=== PATIENT | female | born 1980 ===

== ENCOUNTER 2023-07-17 18:36 | Emergency (ER) | payer OTHER, SELFPAY ==
--- NOTE | ~2023-07-17 | CT_ITS ---
EXAMINATION: CT ABDOMEN AND PELVIS WITHOUT CONTRAST CLINICAL INFORMATION: Left flank pain. COMPARISON: None available. TECHNIQUE: Multidetector volumetric imaging was performed from the superior aspect of the liver through the pubic symphysis. Sagittal and coronal reformatted images were obtained on the technologist's workstation. This CT examination was performed using dose optimization techniques as appropriate, variously including the following: *Automated exposure control *Adjustment of mA and/or kV according to patient size (this includes techniques or standardized protocols for targeted exams where dose is matched to indication/reason for exam; i.e. extremities or head) *Use of iterative reconstruction technique DLP: 600 mGy-cm FINDINGS: LUNG BASES: There is incompletely characterized bibasilar scar/subsegmental atelectasis. LIVER, GALLBLADDER, AND BILIARY TREE: The liver is normal in size, shape, and attenuation. No focal hepatic lesion or biliary ductal dilatation is present. The gallbladder is unremarkable with no evidence of radiopaque gallstones, gallbladder wall thickening, or obvious pericholecystic inflammatory changes. PANCREAS: Unremarkable. SPLEEN: Unremarkable. ADRENAL GLANDS: Unremarkable. KIDNEYS AND URETERS: The kidneys are normal in size, shape, and attenuation. At the upper pole of the right kidney medially (3:24), a 2.7 cm cyst is seen with precontrast Hounsfield value of 6.1 units. This requires no imaging follow-up. No perinephric stranding. At the lower pole of the right kidney (3:35), a 5 mm nonobstructing calculus is seen. No right ureteric calculus is seen, and there is no right obstructive uropathy. There is mild left renal upper pole focal caliectasis secondary to a central infundibular obstructing 4 mm calculus (5:50 and 4:260). No left ureteric calculus or ureterectasis is seen. There are benign, simple mid and lower pole left renal parapelvic cysts, which require no imaging follow-up. BLADDER: Unremarkable. GASTROINTESTINAL TRACT: There is mild diverticulosis, without acute diverticulitis. No bowel obstruction, free intraperitoneal air or abscess is seen. There is no focal bowel wall thickening. The vermiform appendix appears normal. ABDOMINAL WALL: There is a very small fat-containing umbilical hernia. LYMPH NODES: Normal. VASCULAR: Unremarkable. PELVIC VISCERA: The uterus and adnexa are unremarkable. A 2.7 x 1.5 cm right ovarian cyst is seen, with precontrast Hounsfield value of 4.9 units (3:62). This requires no imaging follow-up. OSSEOUS STRUCTURES: Unremarkable. CT/CT abdomen pelvis wo IV con IMPRESSION: 1. There is mild left renal upper pole focal caliectasis secondary to a 4 mm obstructing infundibular calculus. 2. A 5 mm nonobstructing right renal calculus is seen. 3. There is mild diverticulosis, without acute diverticulitis. 4. A very small fat-containing umbilical hernia is seen. 5. Osseous structures are unremarkable. 6. There are incompletely characterized bibasilar atelectatic changes. Fleischner guidelines were followed.
[2023-07-17 19:06] VITALS: BP 149/83; PULSE 78; RESP 16; TEMP 36.6; O2SAT 100; BMI 33.9
--- NOTE | 2023-07-17 19:07 | ED.GENADULT ---
HPI - General Adult General Chief complaint: Abdominal Pain Stated complaint: L side flank pain Time Seen by Provider: 07/17/23 19:37 Source: patient Mode of arrival: ambulatory Limitations: no limitations History of Present Illness HPI narrative: Patient with no history of kidney stones in the past does have strong family history of kidney stones noticed sudden onset of sharp left flank pain started 13:30 radiating to upper left abdomen as with nausea no vomiting no hematuria pain is sharp localize in flank area Related Data Previous Rx's Medication Instructions Recorded ondansetron 4 mg disintegrating 4 mg PO Q6-8H PRN nausea and 07/17/23 tablet vomiting #7 tabs oxycodone 5 mg tablet 5 mg PO Q6H PRN pain #20 tabs 07/17/23 tamsulosin 0.4 mg capsule (Flomax) 0.4 mg PO DAILY #10 caps 07/17/23 Allergies Allergy/AdvReac Type Severity Reaction Status Date / Time No Known Allergies Allergy Verified 07/17/23 19:06 Review of Systems Review of Systems: Yes all other systems are reviewed and are negative [facility] Social History Social History Alcohol intake: never Smoked in Last 30 Days: No Use of substances other than those prescribed or required for medical reasons: No Advance Directives: No Advance Directives Information Provided: No Patient : No Physical Exam ED Vital Signs: Vital Signs - 24 hr 07/17/23 19:06 Temperature 98 F Pulse Rate 78 Respiratory Rate 16 Blood Pressure 149/83 H Pulse Oximetry 100 Oxygen Delivery Method Room Air BMI result Body Mass Index 33.9 Const Other: Appearance: Alert. Oriented X3. Mild distress Eyes: PERRLA, No Nystagmus ENT: Pharynx normal. Oral Mucosa moist Neck: Normal inspection. Neck supple. CVS: Normal heart rate and rhythm. Pulses normal. Respiratory: No respiratory distress. Equal air entry bilateral, no wheezing/rales/rhonchi Abdomen: Soft and nontender. Bowel sounds are present, no mass palpable, L CVA tenderness ++ Skin: Skin warm and dry. Normal skin color. Normal skin turgor. Extremities: No lower extremity edema. No calf tenderness Neuro: Oriented X 3. Course Course Course Narrative: RME- 43 year old female presents for evaluation of left flank pain and urinary frequency. Denies any personal history of kidney stones. Denies fevers or chills. Plan for labs, UA, CT AP without contrast Medications Administered Discontinued Medications Generic Name Dose Route Start Last Admin Trade Name Valentin PRN Reason Stop Dose Admin Sodium Chloride 1,000 mls @ 999 mls/hr 07/17/23 19:51 07/17/23 20:29 Ns IV 07/17/23 20:51 999 mls/hr .Q1H1M ONE Administration Ketorolac Tromethamine 30 mg 07/17/23 19:51 07/17/23 20:29 Ketorolac Tromethamine 30 Mg/Ml Vial IVPUSH 07/17/23 19:52 30 mg ONCE ONE Administration Morphine Sulfate 4 mg 07/17/23 19:51 07/17/23 20:29 Morphine Sulfate 4 Mg/Ml Cartridge IVPUSH 07/17/23 19:52 4 mg ONCE ONE Administration Protocol Ondansetron HCl 4 mg 07/17/23 19:51 07/17/23 20:29 Ondansetron Hcl 4 Mg/2 Ml Vial IVPUSH 07/17/23 19:52 4 mg ONCE ONE Administration Medical Decision Making Medical Decision Making [facility] Narrative: Patient with left infundibular kidney stone with slight hydronephrosis felt better after IV hydration and pain medication at this time patient is pain-free in discharge patient home advised to follow-up with urologist Differential Diagnosis Differential Diagnoses: The differential diagnosis associated with the presentation includes Ureteric stone/ UTI/pyelonephritis Admission/Observation Consideration of admission/observation: Escalation of care including admission/observation considered Lab Data [facility] Lab Attestation statement: I reviewed the patient's lab results. 07/17/23 19:32 07/17/23 19:26 Labs: Lab Results 07/17/23 07/17/23 Range/Units 19:26 19:32 WBC 14.0 H (4.8-10.8) X10*3/uL RBC 4.75 (4.20-5.50) X10*6/uL Hgb 13.6 (12.0-16.0) g/dl Hct 39.5 (37.0-47.0) % MCV 83.2 (80.0-98.0) fL MCH 28.6 (27.0-33.0) pg MCHC 34.4 (31.0-35.0) g/dl RDW 12.8 (11.0-16.0) % Plt Count 328 (160-400) X10*3/uL MPV 9.4 (9.4-12.3) fL Immature Gran % (Auto) 0.4 (0.0-0.4) % Neut % (Auto) 88.6 H (45-73) % Lymph % (Auto) 6.5 L (20-40) % Gray % (Auto) 4.0 (2-11) % Eos % (Auto) 0.1 (0-4) % Baso % (Auto) 0.4 (0-2) % Lymph # (Auto) 0.9 L (1.2-4.9) X10*3/uL Gray # (Auto) 0.6 (0.1-1.2) X10*3/uL Eos # (Auto) 0.0 (0.0-0.4) X10*3/uL Baso # (Auto) 0.1 (0.0-0.2) X10*3/uL Abs Immat Gran (auto) 0.05 H (0.00-0.03) X10*3/uL Absolute Neuts (auto) 12.4 H (2.0-8.3) x10*3/uL Absolute Nucleated RBC 0.000 (0.0-0.012) X10*3/uL Nucleated RBC % (auto) 0.0 (0.0-0.2) /100WBC Sodium 137 (135-145) mmol/L Potassium 4.2 (3.3-5.1) mmol/L Chloride 108 (96-108) mmol/L Carbon Dioxide 20 L (22-29) mmol/L Anion Gap 13 (12-20) BUN 15 (9-16) mg/dL Creatinine 0.70 (0.5-1.4) mg/dL Estim Creat Clear Calc 103.0 Estimated GFR > 60 Random Glucose 103 (60-115) mg/dL Calcium 9.6 (8.4-10.2) mg/dL Beta HCG, Quant < 2 mIU/mL Urine Color Yellow Urine Appearance Cloudy Urine pH 5.5 (5.0-9.0) Ur Specific [place] 1.025 (1.005-1.025) Urine Protein Trace (Neg-Trace) mg/dL Urine Glucose (UA) Negative (Negative) mg/dL Urine Ketones Negative (Negative) mg/dL Urine Blood Large (3+) H (Negative) Urine Nitrite Negative (Negative) Ur Leukocyte Esterase Negative (Negative) Urine RBC >20 H (0-2) /HPF Urine WBC 0-5 (0-5) /HPF Ur Squamous Epith Cells 11-20 (0-2) /HPF Urine Bacteria 2+ (None Seen) Hyaline Casts 6-10 (0-2) /LPF Radiology Impression Discussion of test interpretation with radiology: I have reviewed the radiologist's reading. Radiologist Impression: CT/CT abdomen pelvis wo IV con IMPRESSION: 1. There is mild left renal upper pole focal caliectasis secondary to a 4 mm obstructing infundibular calculus. 2. A 5 mm nonobstructing right renal calculus is seen. 3. There is mild diverticulosis, without acute diverticulitis. 4. A very small fat-containing umbilical hernia is seen. 5. Osseous structures are unremarkable. 6. There are incompletely characterized bibasilar atelectatic changes. Discharge Plan Discharge Clinical Impression: Kidney stone on left side Patient Disposition: Home, Self-Care Instructions: Kidney Stones (ED), Low Oxalate Diet (ED) Additional Instructions: Drink plenty of fluids Pain medication as prescribed Flomax to keep Your kidney Tube open Follow-up with urologist Prescriptions: New oxycodone 5 mg tablet 5 mg PO Q6H PRN (Reason: pain) Qty: 20 0RF Rx Instructions: Partial Fill upon patient request. ondansetron 4 mg tablet,disintegrating 4 mg PO Q6-8H PRN (Reason: nausea and vomiting) Qty: 7 0RF tamsulosin [Flomax] 0.4 mg capsule 0.4 mg PO DAILY Qty: 10 0RF Referrals: Blair Kaminski MD [Physician] - 1 week
[2023-07-17 19:36] LABS: MANUAL DIFF FLAG NO
[2023-07-17 19:41] LABS: Basophils Absolute Auto 0.1 X10*3/uL (0.0-0.2); Basophils Percent Auto 0.4 % (0-2); Eosinophils Percent Auto 0.1 % (0-4); Hematocrit 39.5 % (37.0-47.0); Hemoglobin 13.6 g/dl (12.0-16.0); Imm Gran Abs Auto 0.05 X10*3/uL (0.00-0.03); Imm Gran Pct Auto 0.4 % (0.0-0.4); Lymphocytes Absolute Auto 0.9 X10*3/uL (1.2-4.9); Lymphocytes Percent Auto 6.5 % (20-40); Mean Corpuscular HGB Conc 34.4 g/dl (31.0-35.0); Mean Corpuscular Hemoglobin 28.6 pg (27.0-33.0); Mean Corpuscular Volume 83.2 fL (80.0-98.0); Mean Platelet Volume 9.4 fL (9.4-12.3); Monocytes Absolute Auto 0.6 X10*3/uL (0.1-1.2); Neutrophils Absolute Auto 12.4 x10*3/uL (2.0-8.3); Neutrophils Percent Auto 88.6 % (45-73); Platelet Count 328 X10*3/uL (160-400); Red Blood Count 4.75 X10*6/uL (4.20-5.50); Red Cell Distribution Width 12.8 % (11.0-16.0)
[2023-07-17 19:48] LABS: Appearance Urine Cloudy; Color Urine Yellow; Glucose Urine UA Negative (Negative); Leukocyte Esterase Urine Negative (Negative); Nitrite Urine Negative (Negative); PH 5.5 (5.0-9.0); Specific Gravity - Urine 1.025 (1.005-1.025); UMIC TRIGGER UACC YES; Urine Blood Large (3+) (Negative); Urine Ketones Negative (Negative); Urine Protein Trace mg/dL (Neg-Trace)
[2023-07-17 19:53] LABS: Anion Gap 13 (12-20); Blood Urea Nitrogen 15 mg/dL (9-16); Calcium 9.6 mg/dL (8.4-10.2); Carbon Dioxide 20 mmol/L (22-29); Chloride 108 mmol/L (96-108); Estimated Glomerular Filt Rate > 60; Glucose Random 103 mg/dL (60-115); Potassium 4.2 mmol/L (3.3-5.1); Sodium 137 mmol/L (135-145)
[2023-07-17 20:00] LABS: HCG Quantitative < 2 mIU/mL
[2023-07-17] MEDS: Morphine Sulfate 4 MG/ML CARTRIDGE IVPUSH (20:29)
[2023-07-17] MEDS: 0.9 % Sodium Chloride 1,000 ML 999 ML IV (20:29)
[2023-07-17] MEDS: ondansetron HCL 4 MG/2 ML VIAL IVPUSH (20:29)
[2023-07-17] MEDS: Ketorolac Tromethamine 30 MG/ML VIAL IVPUSH (20:29)
[2023-07-17 20:38] LABS: Bacteria Urine 2+ (None Seen); RBC Urine >20 /HPF (0-2); WBC Urine 0-5 /HPF (0-5)
[2023-07-17] MEDS: Tamsulosin HCL 0.4 MG CAPSULE PO (21:26)
== END 2023-07-17 21:34 | disposition home or self-care (01) ==
PROVIDERS: Physician Assistant; Emergency Provider Internal Medicine
DX: N20.0 Calculus of kidney (principal); R10.12 Left upper quadrant pain; R11.0 Nausea
CPT/HCPCS: 36415; 74176; 80048; 81001; 84702; 85025; 96374; 96375; 99284; J1885; J2270; J2405

== ENCOUNTER 2023-07-24 14:39 | Outpatient (AMB) | payer OTHER, SELFPAY ==
--- NOTE | 2023-07-24 14:43 | MHC.OFFVIS ---
Intake Intake Visit Reasons: Nephrolithiasis Intake Note: NEW Patient presents today to established treatment for Nephrolithiasis: Meds- Tamsulosin Allergies to Antibiotic- No Known Allergies Blood Thinner- None Pitch Filler Required: Yes Pitch Filler Language: Belarusian Information Interpreted: non-clinical & clinical Accompanied by: Self / Same As Patient Allergies No Known Allergies Allergy (Verified 07/29/23 23:55) HPI HPI Comments History of Present Illness Details Simi is a 43-year-old female who presents today to the office to establish as a new patient for an evaluation of nephrolithiasis.? 07/24/2023? She presents today for an evaluation of nephrolithiasis. The patient is a Bel[place]ian speaking female. Certified director of graduate medical education was present during the visit. She was seen in ED for left flank pain on 07/17/2023. The patient was advised to drink plenty of fluids, and was advised to follow-up with urologist during that time. I reviewed the CT of the abdomen/pelvis results from 07/17/2023 revealed 4 mm obstructing infundibular calculus. 2. A 5 mm nonobstructing right renal calculus is seen. There is mild diverticulosis, without acute diverticulitis. A very small fat-containing umbilical hernia is seen. Patient states that the left sided flank pain has worsen on 2022. Evaluation today?UA?leukocytes: negative; blood: 2 +. Plan: Bilateral kidney stones Left flank pain Discussed ESWL. [facility] Medical History (Updated 09/04/23 @ 07:51 by Delbert Benavides MD) Nephrolithiasis Surgical History (Updated 07/24/23 @ 15:03 by WESLEY Roque) Hx of tubal ligation Family History (Updated 07/24/23 @ 15:04 by WESLEY Roque) Father Cancer Mother HTN (hypertension) Sister Kidney calculi Social History (Updated 07/24/23 @ 15:03 by WESLEY Roque) Alcohol intake: never Patient Tobacco Use Status: Current everyday Tobacco user Are you DNR?: No Advance Directives: No Advance Directives Information Provided: Yes Review of Systems Const All systems reviewed & are unremarkable except as noted in HPI and below Reports no additional complaints Eyes Reports no additional complaints ENT Reports no additional complaints Card Denies dyspnea Resp Denies cough and Denies dyspnea GI Reports no additional complaints Reports no additional complaints Musc Reports no additional complaints Skin/Breast Denies rash and Denies unusual bruising Neuro Reports no additional complaints Psych Reports no additional complaints Endo Reports no additional complaints [place]/Lymph Reports no additional complaints Aller/Immun Reports no additional complaints Results AMB Urinalysis, Automated UA Leukoctes 0 Walter/uL Last Edit by Parviz West [facility] on 07/24/23 14:59 UA Nitrite Negative Last Edit by Parviz West [facility] on 07/24/23 14:59 UA Urobilinogen 0.2 mg/dL Last Edit by Parviz West [facility] on 07/24/23 14:59 UA Protein 15 mg/dL Last Edit by Parviz West [facility] on 07/24/23 14:59 UA pH 6.0 Last Edit by Parviz West [facility] on 07/24/23 14:59 UA Blood 80 Toño/uL Last Edit by Parviz West [facility] on 07/24/23 14:59 2+ Parviz West 07/24/23 14:59 UA Specific [place] 1.025 Last Edit by Parviz West [facility] on 07/24/23 14:59 UA Ketone Negative Last Edit by Parviz West [facility] on 07/24/23 14:59 UA Bilirubin 0 mg/dL Last Edit by Parviz West [facility] on 07/24/23 14:59 UA Glucose 0 mg/dL Last Edit by Parviz West [facility] on 07/24/23 14:59 Results Reviewed Results Reviewed: Laboratory Last Values Urine pH (Auto) 6.0 07/24/23 14:51 Specific [place] (Auto) 1.025 07/24/23 14:51 Urine Protein (Auto) 15 mg/dL 07/24/23 14:51 Glucose (UA)(Auto) 0 mg/dL 07/24/23 14:51 Urine Ketones (Auto) Negative 07/24/23 14:51 Urine Blood (Auto) 80 Toño/uL 07/24/23 14:51 Urine Nitrite (Auto) Negative 07/24/23 14:51 Urine Bilirubin (Auto) 0 mg/dL 07/24/23 14:51 Urine Urobilinogen (Auto) 0.2 mg/dL 07/24/23 14:51 Leukocyte Esterase (Auto) 0 Walter/uL 07/24/23 14:51 Date of Service: 07/17/23 EXAMINATION: CT ABDOMEN AND PELVIS WITHOUT CONTRAST?? CLINICAL INFORMATION: Left flank pain.?? COMPARISON: None available. FINDINGS: LUNG BASES: There is incompletely characterized bibasilar scar/subsegmental atelectasis.?? LIVER, GALLBLADDER, AND BILIARY TREE: The liver is normal in size, shape, and attenuation. No focal hepatic lesion or biliary ductal dilatation is present. The gallbladder is unremarkable with no evidence of radiopaque gallstones, gallbladder wall thickening, or obvious pericholecystic inflammatory changes.?? PANCREAS: Unremarkable.?? SPLEEN: Unremarkable.?? ADRENAL GLANDS: Unremarkable.?? KIDNEYS AND URETERS: The kidneys are normal in size, shape, and attenuation. At the upper pole of the right kidney medially (3:24), a 2.7 cm cyst is seen with precontrast Hounsfield value of 6.1 units. This requires no imaging follow-up. No perinephric stranding.? At the lower pole of the right kidney (3:35), a 5 mm nonobstructing calculus is seen. No right ureteric calculus is seen, and there is no right obstructive uropathy.? There is mild left renal upper pole focal caliectasis secondary to a central infundibular obstructing 4 mm calculus (5:50 and 4:260). No left ureteric calculus or ureterectasis is seen. There are benign, simple mid and lower pole left renal parapelvic cysts, which require no imaging follow-up. BLADDER: Unremarkable.?? GASTROINTESTINAL TRACT: There is mild diverticulosis, without acute diverticulitis. No bowel obstruction, free intraperitoneal air or abscess is seen. There is no focal bowel wall thickening. The vermiform appendix appears normal.?? ABDOMINAL WALL: There is a very small fat-containing umbilical hernia.? LYMPH NODES: Normal. VASCULAR: Unremarkable. PELVIC VISCERA: The uterus and adnexa are unremarkable. A 2.7 x 1.5 cm right ovarian cyst is seen, with precontrast Hounsfield value of 4.9 units (3:62). This requires no imaging follow-up. OSSEOUS STRUCTURES: Unremarkable.?? IMPRESSION: 1. There is mild left renal upper pole focal caliectasis secondary to a 4 mm obstructing infundibular calculus. 2. A 5 mm nonobstructing right renal calculus is seen. ?3. There is mild diverticulosis, without acute diverticulitis. 4. A very small fat-containing umbilical hernia is seen. 5. Osseous structures are unremarkable. 6. There are incompletely characterized bibasilar atelectatic changes Assessment & Plan Assessment & Plan (1) Bilateral kidney stones: Code(s): N20.0 - Calculus of kidney (2) Left flank pain: Code(s): R10.9 - Unspecified abdominal pain Plan Bilateral kidney stones Left flank pain Discussed ESWL. Orders: Orders AMB Urinalysis Automated 07/24/23 Z13.9 - Encounter for screening, unspecified Patient Instructions: The patient had an opportunity to ask questions regarding treatment plan. All questions were answered. Imaging, Laboratory studies and physical exam results were discussed and reviewed in detail. No major barriers to understanding were identified. The patient expressed understanding and agreement with the above treatment plan.? ? ? The patient is aware they should contact our office by phone for worsening of their current condition or the appearance of new symptoms. Compliance is encouraged with any medications and followup testing that is ordered.? ? ? It is a privilege to be allowed the opportunity to participate in the urologic care of your patient. If you have any questions or concerns regarding treatment for the above conditions please do not hesitate to contact me. The office telephone contact is [phone].? ? ? This note is constructed in part using voice recognition software. While every effort has been made to ensure accuracy customer service representative teller errors may have been included.? ? ? Yours sincerely,? ? ? Delbert Benavides MD? ? Coding Level of Care Code Est Pt Level 4 (38311) Diagnoses Bilateral kidney stones N20.0 Left flank pain R10.9
== END 2023-07-24 15:23 | disposition home or self-care (01) ==
PROVIDERS: Visit Provider Urology
DX: N20.0 Calculus of kidney (principal); R10.9 Unspecified abdominal pain
CPT/HCPCS: 99214

== ENCOUNTER → 2023-07-24 14:39 | Outpatient (BNVA) | payer OTHER, SELFPAY | PROVIDERS: Visit Provider Urology | DX: N20.0 Calculus of kidney (principal); R10.9 Unspecified abdominal pain | CPT/HCPCS: 81003; 99212 ==

== ENCOUNTER 2023-07-29 23:41 | Emergency (ER) | payer OTHER, SELFPAY ==
[2023-07-29 23:51] VITALS: BP 147/81; PULSE 86; RESP 18; TEMP 37.1; O2SAT 100; BMI 33.3
[2023-07-30 00:19] LABS: MANUAL DIFF FLAG NO
[2023-07-30 00:20] LABS: Basophils Absolute Auto 0.1 X10*3/uL (0.0-0.2); Basophils Percent Auto 0.4 % (0-2); Eosinophils Absolute Auto 0.1 X10*3/uL (0.0-0.4); Eosinophils Percent Auto 0.4 % (0-4); Hematocrit 37.7 % (37.0-47.0); Hemoglobin 12.8 g/dl (12.0-16.0); Imm Gran Abs Auto 0.06 X10*3/uL (0.00-0.03); Imm Gran Pct Auto 0.4 % (0.0-0.4); Lymphocytes Absolute Auto 1.1 X10*3/uL (1.2-4.9); Lymphocytes Percent Auto 7.2 % (20-40); Mean Corpuscular Hemoglobin 28.7 pg (27.0-33.0); Mean Corpuscular Volume 84.5 fL (80.0-98.0); Mean Platelet Volume 9.3 fL (9.4-12.3); Monocytes Percent Auto 6.3 % (2-11); Neutrophils Absolute Auto 13.3 x10*3/uL (2.0-8.3); Neutrophils Percent Auto 85.3 % (45-73); Platelet Count 308 X10*3/uL (160-400); Red Blood Count 4.46 X10*6/uL (4.20-5.50); Red Cell Distribution Width 12.7 % (11.0-16.0); White Blood Count 15.6 X10*3/uL (4.8-10.8)
[2023-07-30 00:24] LABS: Appearance Urine Cloudy; Color Urine Yellow; Glucose Urine UA Negative (Negative); Leukocyte Esterase Urine Trace (Negative); Nitrite Urine Negative (Negative); Specific Gravity - Urine 1.025 (1.005-1.025); UMIC TRIGGER UACC YES; Urine Blood Small (1+) (Negative); Urine Ketones Negative (Negative); Urine Protein Negative (Neg-Trace)
[2023-07-30 00:30] LABS: Bacteria Urine 4+ (None Seen); Hyaline Casts Urine 0-2 /LPF (0-2); WBC Urine 0-5 /HPF (0-5)
[2023-07-30 00:36] LABS: Alanine Aminotransferase 17 U/L (0-31); Albumin Level 4.1 g/dL (3.5-5.0); Alkaline Phosphatase 99 U/L (39-117); Anion Gap 15 (12-20); Aspartate Amino Transferase 17 U/L (5-31); Bilirubin Direct < 0.2 mg/dL (0.0-0.5); Bilirubin Total 0.2 mg/dL (0.0-1.0); Blood Urea Nitrogen 20 mg/dL (9-16); Calcium 9.4 mg/dL (8.4-10.2); Carbon Dioxide 20 mmol/L (22-29); Chloride 109 mmol/L (96-108); Creatinine Clr Calc Pharmacy 62.1; Estimated Glomerular Filt Rate 51; Glucose Random 138 mg/dL (60-115); Lipase 48 U/L (8-78); Potassium 4.4 mmol/L (3.3-5.1); Sodium 140 mmol/L (135-145); Total Protein 7.5 g/dL (6.5-8.0)
[2023-07-30] MEDS: Ketorolac Tromethamine 30 MG/ML VIAL IVPUSH (01:04)
[2023-07-30] MEDS: ondansetron HCL 4 MG/2 ML VIAL IVPUSH (01:04)
[2023-07-30] MEDS: 0.9 % Sodium Chloride 1,000 ML 999 ML IV (01:04)
--- NOTE | 2023-07-30 01:23 | ED.GENADULT ---
HPI - General Adult General Chief complaint: General Medical Stated complaint: Kidney stones Time Seen by Provider: 07/30/23 00:44 Source: patient, RN notes reviewed and old records reviewed Mode of arrival: ambulatory Limitations: no limitations History of Present Illness HPI narrative: 43-year-old female presents for evaluation of left flank pain. Patient was seen here on 07/17/2023 and diagnosed with a 4 mm left kidney stone. She was ultimately discharged home to follow-up with Dr. Benavides. Discharge home with tamsulosin, oxycodone, Zofran. The patient reports that her pain resolved within a couple of days She saw Urology 1 week later on 07/24/2023 he was given follow-up for September. The patient's pain returned today around 9:00 p.m., 3-1/2 hours prior to arrival to the ED She states the pain is waxing and waning. Denies any fevers, chills. She reports ?I keep feeling like I have to pee but then only a little comes out. ? Related Data Home Medications Medication Instructions Recorded Confirmed naproxen 500 mg tablet 500 mg PO BID 07/24/23 Previous Rx's Medication Instructions Recorded ondansetron 4 mg disintegrating 4 mg PO Q6-8H PRN nausea and 07/17/23 tablet vomiting #7 tabs oxycodone 5 mg tablet 5 mg PO Q6H PRN pain #20 tabs 07/17/23 tamsulosin 0.4 mg capsule (Flomax) 0.4 mg PO DAILY #10 caps 07/17/23 cefuroxime axetil 250 mg tablet 250 mg PO BID #14 tabs 07/30/23 oxycodone 5 mg tablet 5 mg PO Q6H PRN severe pain (scale 07/30/23 score 7-10) #12 tabs tamsulosin 0.4 mg capsule 0.4 mg PO DAILY #7 caps 07/30/23 Allergies Allergy/AdvReac Type Severity Reaction Status Date / Time No Known Allergies Allergy Verified 07/29/23 23:55 Review of Systems Constitutional: Constitutional: Denies chills and Denies fever(s) Eyes: Eyes: Denies blurry vision ENT: Denies vertigo Cardiovascular: Cardiovascular: Denies chest pain and Denies dyspnea Respiratory: Respiratory: Denies cough and Denies dyspnea Gastrointestinal: Gastrointestinal: Reports abdominal pain, Denies nausea and Denies vomiting Genitourinary: Genitourinary: Denies dysuria and Reports flank pain Musculoskeletal: Musculoskeletal: Reports back pain Integumentary/Breasts: Skin/Breast: Denies rash Neurologic: Denies vertigo [facility] Past Medical History Surgical History (Updated 07/24/23 @ 15:03 by WESLEY Roque) Hx of tubal ligation Family History Family History (Updated 07/24/23 @ 15:04 by WESLEY Roque) Father Cancer Mother HTN (hypertension) Sister Kidney calculi Social History Social History (Updated 07/24/23 @ 15:03 by WESLEY Roque) Alcohol intake: never Patient Tobacco Use Status: Former Tobacco user Smoked in Last 30 Days: Yes Use of substances other than those prescribed or required for medical reasons: No Advance Directives: No Advance Directives Information Provided: No Patient : No Physical Exam ED Vital Signs: Vital Signs - 24 hr 07/29/23 23:51 Temperature 98.7 F Pulse Rate 86 Respiratory Rate 18 Blood Pressure 147/81 H Pulse Oximetry 100 Oxygen Delivery Method Room Air BMI result Body Mass Index 33.3 Const General: healthy appearing, comfortable, no acute distress, alert and awake Nutritional Appearance: well nourished Orientation/consciousness: patient oriented x3 HENMT Head: Yes normocephalic and Yes atraumatic Eyes Eyelids: Yes eyelids normal Conjunctivae: conjunctivae normal Sclerae: sclerae normal Corneas: corneas normal Pupils: Equal, round and reactive pupils present EOM: EOMs intact bilaterally Neck Neck: Yes full ROM Resp Effort & Inspection: normal respiratory effort, able to speak in complete sentences and not labored Cardio Rate: regular rate Rhythm: regular rhythm GI Inspection: No distended Palpation (GI): Soft to palpation, not firm, nontender, no guarding and not rigid Skin General skin exam: elasticity normal Neuro General: patient oriented x3 Cranial nerves: Yes Equal, round and reactive pupils present and Yes Bilaterally intact EOM present Cognition (Neuro): normal cognition Extrem Other: Moving all extremities well without any obvious deformities Medications Administered Generic Name Dose Route Start Last Admin Trade Name Freq PRN Reason Stop Dose Admin Sodium Chloride 1,000 mls @ 999 mls/hr 07/30/23 01:00 07/30/23 01:04 Ns IV 09/26/23 02:00 999 mls/hr .Q1H1M APPLE Administration Discontinued Medications Generic Name Dose Route Start Last Admin Trade Name Valentin PRN Reason Stop Dose Admin Ketorolac Tromethamine 30 mg 07/30/23 00:51 07/30/23 01:04 Ketorolac Tromethamine 30 Mg/Ml Vial IVPUSH 07/30/23 00:52 30 mg ONCE ONE Administration Ondansetron HCl 4 mg 07/30/23 00:51 07/30/23 01:04 Ondansetron Hcl 4 Mg/2 Ml Vial IVPUSH 07/30/23 00:52 4 mg ONCE ONE Administration Medical Decision Making Medical Decision Making MDM Narrative: 43-year-old male presents for evaluation left flank pain. She was seen here just about 2 weeks ago for similar and diagnosed with a 4 mm left infundibular stone. She was pain free for about a week before her pain returned again today. She is noted have a leukocytosis of 15.6 K. This may be partially related to the amount of pain she is experiencing earlier/reactive. Her renal function is slightly increased compared to her last visit with a BUN of 20 and a creatinine of 1.15. No evidence of significant renal injury, however showed likely still has some degree of obstruction. The patient also has 4+ bacteria in the urine, therefore we will treat with cefuroxime axetil. She has no evidence of sepsis, no fevers. Vital signs are stable Differential Diagnosis Differential Diagnoses: The differential diagnosis associated with the presentation includes Obstructive uropathy Pyelonephritis Cystitis UTI Flank pain Muscle strain Admission/Observation Consideration of admission/observation: Escalation of care including admission/observation considered Patient's 2nd visit for obstructive uropathy, however she is not septic with vital signs, she appears quite comfortable, her renal function is only minimally increased. No indication for admission at this time Lab Data MDM Lab Attestation statement: I reviewed the patient's lab results. Mild leukocytosis, mild BUN creatinine increased compared to baseline as described above. No significant electrolyte abnormalities. 07/30/23 00:15 07/30/23 00:15 Labs: Lab Results 07/30/23 07/30/23 Range/Units 00:15 00:19 WBC 15.6 H (4.8-10.8) X10*3/uL RBC 4.46 (4.20-5.50) X10*6/uL Hgb 12.8 (12.0-16.0) g/dl Hct 37.7 (37.0-47.0) % MCV 84.5 (80.0-98.0) fL MCH 28.7 (27.0-33.0) pg MCHC 34.0 (31.0-35.0) g/dl RDW 12.7 (11.0-16.0) % Plt Count 308 (160-400) X10*3/uL MPV 9.3 L (9.4-12.3) fL Immature Gran % (Auto) 0.4 (0.0-0.4) % Neut % (Auto) 85.3 H (45-73) % Lymph % (Auto) 7.2 L (20-40) % [place] % (Auto) 6.3 (2-11) % Eos % (Auto) 0.4 (0-4) % Baso % (Auto) 0.4 (0-2) % Lymph # (Auto) 1.1 L (1.2-4.9) X10*3/uL [place] # (Auto) 1.0 (0.1-1.2) X10*3/uL Eos # (Auto) 0.1 (0.0-0.4) X10*3/uL Baso # (Auto) 0.1 (0.0-0.2) X10*3/uL Abs Immat Gran (auto) 0.06 H (0.00-0.03) X10*3/uL Absolute Neuts (auto) 13.3 H (2.0-8.3) x10*3/uL Absolute Nucleated RBC 0.000 (0.0-0.012) X10*3/uL Nucleated RBC % (auto) 0.0 (0.0-0.2) /100WBC Sodium 140 (135-145) mmol/L Potassium 4.4 (3.3-5.1) mmol/L Chloride 109 H (96-108) mmol/L Carbon Dioxide 20 L (22-29) mmol/L Anion Gap 15 (12-20) BUN 20 H (9-16) mg/dL Creatinine 1.15 (0.5-1.4) mg/dL Estim Creat Clear Calc 62.1 Estimated GFR 51 Random Glucose 138 H (60-115) mg/dL Calcium 9.4 (8.4-10.2) mg/dL Total Bilirubin 0.2 (0.0-1.0) mg/dL Direct Bilirubin < 0.2 (0.0-0.5) mg/dL AST 17 (5-31) U/L ALT 17 (0-31) U/L Alkaline Phosphatase 99 (39-117) U/L Total Protein 7.5 (6.5-8.0) g/dL Albumin 4.1 (3.5-5.0) g/dL Lipase 48 (8-78) U/L Urine Color Yellow Urine Appearance Cloudy Urine pH 6.0 (5.0-9.0) Ur Specific [place] 1.025 (1.005-1.025) Urine Protein Negative (Neg-Trace) mg/dL Urine Glucose (UA) Negative (Negative) mg/dL Urine Ketones Negative (Negative) mg/dL Urine Blood Small (1+) H (Negative) Urine Nitrite Negative (Negative) Ur Leukocyte Esterase Trace H (Negative) Urine RBC 11-20 H (0-2) /HPF Urine WBC 0-5 (0-5) /HPF Ur Squamous Epith Cells 11-20 (0-2) /HPF Urine Bacteria 4+ (None Seen) Hyaline Casts 0-2 (0-2) /LPF Tests considered The following testing was considered but not selected: Additional CT imaging, however given the patient is stable for discharge and we know she has a 4 mm stone at feel this is not appropriate to radiate the patient again. Prescription Management I considered prescription management with: Pain Medication and Antibiotic Discharge Plan Discharge Clinical Impression: Acute unilateral obstructive uropathy Patient Disposition: Home, Self-Care Instructions: Kidney Stones (ED) Additional Instructions: The kidney stone on the left is likely continuing to move and is likely stuck just before the bladder. This is what is most likely contributing to your increased pain There is some bacteria in your urine, so I would like you to start taking cefuroxime twice daily for the next 7 days Take oxycodone as needed for severe or breakthrough pain Start taking tamsulosin again Call Dr. Curt montalvo, urology in the morning use Prescriptions: New oxycodone 5 mg tablet 5 mg PO Q6H PRN (Reason: severe pain (scale score 7-10)) Qty: 12 0RF Rx Instructions: Partial Fill upon patient request. cefuroxime axetil 250 mg tablet 250 mg PO BID Qty: 14 0RF tamsulosin 0.4 mg capsule 0.4 mg PO DAILY Qty: 7 0RF No Action oxycodone 5 mg tablet 5 mg PO Q6H PRN (Reason: pain) Qty: 20 0RF Rx Instructions: Partial Fill upon patient request. ondansetron 4 mg tablet,disintegrating 4 mg PO Q6-8H PRN (Reason: nausea and vomiting) Qty: 7 0RF tamsulosin [Flomax] 0.4 mg capsule 0.4 mg PO DAILY Qty: 10 0RF naproxen 500 mg tablet 500 mg PO BID Referrals: Delbert Benavides MD [Physician] - (left obstructive uropathy)
[2023-07-30 02:05] VITALS: BP 119/72; PULSE 80; RESP 16; TEMP 36.8; O2SAT 98
== END 2023-07-30 02:32 | disposition home or self-care (01) ==
PROVIDERS: Emergency Provider Emergency Medicine
DX: N13.9 Obstructive and reflux uropathy, unspecified (principal); R33.9 Retention of urine, unspecified; Z79.899 Other long term (current) drug therapy
CPT/HCPCS: 36415; 80048; 80076; 81001; 83690; 85025; 96374; 96375; 99284; J1885; J2405

== ENCOUNTER 2023-09-04 07:15 | Day surgery (SDC) | payer OTHER, SELFPAY ==
--- NOTE | 2023-09-03 09:53 | P.CONAN_ITS ---
Documented by User: Jennie Rincon NP 09/03/23 09:55 HPI - Anesthesia Eval Consult details Narrative: 43yo F for Left ESWL [facility] Past Medical History Medical History (Updated 09/04/23 @ 07:51 by Delbert Benavides MD) Nephrolithiasis Family History Family History (Updated 07/24/23 @ 15:04 by WESLEY Roque) Father Cancer Mother HTN (hypertension) Sister Kidney calculi Surgical History Surgical History (Updated 07/24/23 @ 15:03 by WESLEY Roque) Hx of tubal ligation Social History Social History (Updated 07/24/23 @ 15:03 by WESLEY Roque) Alcohol intake: never Patient Tobacco Use Status: Current everyday Tobacco user Are you DNR?: No Advance Directives: No Advance Directives Information Provided: Yes Meds Allergies Allergy/AdvReac Type Severity Reaction Status Date / Time No Known Allergies Allergy Verified 07/29/23 23:55 Home Medications Medication Instructions Recorded Confirmed Last Taken Type naproxen 500 mg tablet 500 mg PO BID 07/24/23 Unknown History Exam Exam Date and Time: September 03, 2023 0953 Pertinent Lab Results Pertinent Lab Results: Laboratory Tests 07/30/23 00:15 WBC 15.6 H Hgb 12.8 Hct 37.7 Plt Count 308 Sodium 140 Potassium 4.4 Chloride 109 H Carbon Dioxide 20 L BUN 20 H Creatinine 1.15 Assessment and Plan Assessment Anesthesia Assessment: Chart Reviewed Documented by User: Karol Gallego MD 09/04/23 08:06 [facility] Past Medical History Medical History (Updated 09/04/23 @ 07:51 by Delbert Benavides MD) Nephrolithiasis Family History Family History (Updated 07/24/23 @ 15:04 by WESLEY Roque) Father Cancer Mother HTN (hypertension) Sister Kidney calculi Family history of problems with anesthesia: No Surgical History Surgical History (Updated 07/24/23 @ 15:03 by WESLEY Roque) Hx of tubal ligation History of Problems with Anesthesia: No Social History Social History (Updated 07/24/23 @ 15:03 by WESLEY Roque) Alcohol intake: never Patient Tobacco Use Status: Current everyday Tobacco user Are you DNR?: No Advance Directives: No Advance Directives Information Provided: Yes Meds Allergies Allergy/AdvReac Type Severity Reaction Status Date / Time No Known Allergies Allergy Verified 07/29/23 23:55 Home Medications Medication Instructions Recorded Confirmed Last Taken Type naproxen 500 mg tablet 500 mg PO BID 07/24/23 Unknown History Exam Airway Mallampati Class: II TM Dist: >3cm Neck ROM: Full Assessment and Plan Assessment Anesthesia Assessment: Anesthesia Plan Discussed Final Anesthetic Review Family History of Problems with Anesthesia: No History of Problems with Anesthesia: No NPO: Yes ASA Class: II Final Preanesthetic Review: No Changes in Pt Med Stat, Meds/Allgs Chart Reviewed, Consent Obtained/Reviewed and Anes Risks/Benef Reviewed Patient Risk: Low Procedure Risk: Low Anesthetic Plan Anesthetic Plan: GA Disposition: Standard PACU
--- NOTE | ~2023-09-04 | XR_ITS ---
EXAMINATION: XR ABDOMEN KUB CLINICAL INDICATION: Right ESWL COMPARISON: CT abdomen from 07/17/2023 TECHNIQUE: AP view of the abdomen. FINDINGS: 2 mm calculus overlying the right renal lower pole. Pelvic phleboliths versus distal ureteral calculus measuring 1 mm in the inferior margin of the pelvis. No radiopaque calcific patient overlying the left renal shadows or left ureteral path. Bowel gas is nonobstructive. Osseous structures are intact. Soft tissues are unremarkable. XR/XR KUB IMPRESSION: 1. 2 mm calculus overlying the right renal lower pole. 2. Pelvic phleboliths versus distal ureteral calculus measuring 1 mm in the inferior margin of the pelvis. 3. No radiopaque calcific patient overlying the left renal shadows or left ureteral path. 4. Bowel gas is nonobstructive.
[2023-09-04 07:32] VITALS: BP 144/83; PULSE 92; RESP 20; TEMP 36.1; O2SAT 98
[2023-09-04 07:46] VITALS: BMI 33.3
[2023-09-04] MEDS: Lactated Ringers 1,000 ML 100 ML IVCONT (07:52)
--- NOTE | 2023-09-04 08:32 | PC.NURSE ---
surgery changed to right side pt passed left sided stone will send to pathology per order
--- NOTE | 2023-09-04 08:37 | MHC.SHP ---
Pre-Procedural Eval Section A Date of Service: 09/04/23 The History & Physical has been completed within 30 days and I have reviewed it.: No Section B Chief Complaint: Calculus of kidney, bilateral, left flank pain Details of Present Illness: Simi is a 43 year old female with nephrolithiasis, was scheduled for left ESWL, passed left kidney stone this AM. Kub c/w right lower pole stone, no radiopaque stones noted in area of left renal fossae. Will send stone for analysis. Patient wants right kidney stone treated. Plan right ESWL. Allergies: Allergies Allergy/AdvReac Type Severity Reaction Status Date / Time No Known Allergies Allergy Verified 07/29/23 23:55 Review of Systems Review of Systems Comment: 10 point ROS negative other than stated in HPI Exam Surgical H&P Exam: Normal: HEENT, Normal: Heart, Normal: Lungs and Normal: Neurological Plan I have reviewed the history and physical and performed a pertinent physical examination on my patient. No changes have occurred unless specified. Right ESWL. Discussed risks to include but not limited to, blood in the urine, bruising to the skin, kidney hematoma, possible need for another procedure if a stone fragment obstructs the ureter while passing, possible need to repeat procedure if stone is not completely fragmented. Time Spent With Patient Time: Total time managing care of this patient today ____ minutes.
[2023-09-04 09:33] VITALS: BP 129/79; PULSE 83; RESP 16; TEMP 36.1; O2SAT 93
[2023-09-04 09:38] VITALS: BP 137/82; PULSE 80; RESP 16; O2SAT 94
--- NOTE | 2023-09-04 09:38 | W.PM.OPN ---
Operative Note Operative Note Date of Service: 09/04/23 Narrative: PreOperative Diagnosis:? ? Right Renal stone Post Operative Diagnosis:? Right? Renal stone Procedure:? Right? ESWL Surgeon:?Dr Delbert Benavides Anesthesia:? General Indications for procedure: The patient understands there is a risk of bruising or hematoma to the kidney, infection, and stone migration following the procedure and subsequent intervention may be required.? - Imaging pre procedure KUB 6 x 5 mm stone right kidney lower pole. Procedure: After informed consent was verified the patient was brought to the operating room and placed in a supine position.? Anesthesia was performed per protocol. IV Ancef administered. Safety pause time-out was performed. Imaging was displayed in the room and laterality confirmed. ESWL was performed.?The stone was visualized on both fluoroscopy and ultrasound.? Shockwave lithotripsy was performed, the first 300 shocks at 60 hertz.? A pause for 3 minutes.? A total of 2500 shocks to a maximum of power of 18 with a maximum rate of 120 hertz.? Good fragmentation of the stone was appreciated. The patient tolerated the procedure well and was transferred to the recovery area upon completion. Complications: None
[2023-09-04 09:43] VITALS: BP 124/77; PULSE 77; RESP 17; O2SAT 95
[2023-09-04 09:49] VITALS: BP 127/78; PULSE 75; RESP 16; O2SAT 96
[2023-09-04] MEDS: oxyCODONE HCl Immed Release 5 MG TABLET PO (09:55)
[2023-09-04 10:10] VITALS: BP 131/74; PULSE 77; RESP 17; TEMP 36.1; O2SAT 99
[2023-09-10 13:48] LABS: Stone Source LEFT KIDNEY STONE
== END 2023-09-04 10:47 | disposition home or self-care (01) ==
PROVIDERS: Visit Provider Urology
PROC: (CPT 50590; principal; 2023-09-04 08:40)
DX: N20.0 Calculus of kidney (principal); K57.30 Diverticulosis of large intestine without perforation or abscess without bleeding; Z79.1 Long term (current) use of non-steroidal anti-inflammatories (NSAID); Z98.51 Tubal ligation status; Z87.891 Personal history of nicotine dependence
CPT/HCPCS: 50590; 74018; 82365; J0131; J0690; J1100; J1940; J2250; J2405; J3010

== ENCOUNTER → 2023-09-04 07:15 | Outpatient (BNV) | payer OTHER, SELFPAY | PROVIDERS: Visit Provider Urology | DX: N20.0 Calculus of kidney (principal) | CPT/HCPCS: 50590 ==

== ENCOUNTER 2023-09-20 15:28 | Outpatient (AMB) | payer OTHER, SELFPAY ==
--- NOTE | 2023-09-20 15:31 | A.OFFVIS_ITS ---
Intake Intake Visit Reasons: 3 week follow up Intake Note: Patient presents today for a follow-up on Nephrolithiasis: Meds- Tamsulosin Allergies to Antibiotic- No Known Allergies Blood Thinner- None Convex Grinder Operator Required: Yes Convex Grinder Operator Language: [place] Information Interpreted: non-clinical & clinical Accompanied by: Self / Same As Patient Allergies No Known Allergies Allergy (Verified 07/29/23 23:55) HPI HPI Comments History of Present Illness Details Simi is a 43-year-old female who presents today to the office for a follow-up. 09/20/2023? She is followed today for bilateral nephrolithiasis. She was last seen by me on 09/04/2023. She was initially scheduled for left ESWL but the morning of the procedure, she stated she passed the left kidney stone and brought the stone. The stone was sent for analysis. She had a KUB that morning and was consented for a right ESWL. She states she is not sure if she passed any stone fragments. I have discussed at length diet modification to decrease risk of forming more kidney stones. I have discussed low oxalate diet and specific foods to avoid including certain green leafy vegetables, chocalate, nuts, tea, beets, rubarb; low sodium, decreased use of animal protein and the importance of hydration drinking up to 2-2.5 liters of fluids and use of adding lemon to water to increase citrate in the diet. A pamphlet is also provided today. Discussed further evaluation with metabolic w/u--Also discussed stone analysis- came back Calcium Oxalate. 09/20/2023: Evaluation today?UA?Leukocyt es: negative; blood: trace; protein: 1 +. 09/20/2023: Plan: Total time spent in di scussion with patient and results for this encounter for today 32 minutes. I have discussed diet modifications to decrease the risk of stone formation. Diet sheet was provided. Ordered vitamin B6 100 mg daily. Follow-up in 3 months. 24 hr urine, KUB prior [facility] Medical History (Updated 09/04/23 @ 07:51 by Delbert Benavides MD) Nephrolithiasis Surgical History (Updated 07/24/23 @ 15:03 by WESLEY Roque) Hx of tubal ligation Family History (Updated 07/24/23 @ 15:04 by WESLEY Roque) Father Cancer Mother HTN (hypertension) Sister Kidney calculi Social History (Updated 07/24/23 @ 15:03 by WESLEY Roque) Alcohol intake: never Patient Tobacco Use Status: Current everyday Tobacco user Review of Systems Const All systems reviewed & are unremarkable except as noted in HPI and below Reports no additional complaints Eyes Reports no additional complaints ENT Reports no additional complaints Card Denies dyspnea Resp Denies cough and Denies dyspnea GI Reports no additional complaints Reports no additional complaints Musc Reports no additional complaints Skin/Breast Denies rash and Denies unusual bruising Neuro Reports no additional complaints Psych Reports no additional complaints Endo Reports no additional complaints [place]/Lymph Reports no additional complaints Aller/Immun Reports no additional complaints Assessment & Plan Assessment & Plan (1) Bilateral kidney stones: Code(s): N20.0 - Calculus of kidney Plan I have discussed diet modifications to decrease the risk of stone formation. Diet sheet was provided. Ordered vitamin B6 100 mg daily. Follow-up in 3 months. Medications: New pyridoxine (vitamin B6) 100 mg PO DAILY 90 tabs 3RF Patient Instructions: The patient had an opportunity to ask questions regarding treatment plan. All questions were answered. Imaging, Laboratory studies and physical exam results were discussed and reviewed in detail. No major barriers to understanding were identified. The patient expressed understanding and agreement with the above treatment plan. The patient is aware they should contact our office by phone for worsening of their current condition or the appearance of new symptoms. Compliance is encouraged with any medications and followup testing that is ordered. It is a privilege to be allowed the opportunity to participate in the urologic care of your patient. If you have any questions or concerns regarding treatment for the above conditions please do not hesitate to contact me. The office telephone contact is [phone]. This note is constructed in part using voice recognition software. While every effort has been made to ensure accuracy communications maintainer errors may have been included. Yours sincerely, Delbert Benavides MD Coding Level of Care Code Est Pt Level 4 (27401) Global (32297) Diagnoses Bilateral kidney stones N20.0 Time Spent (min) 32 Comment modifier for time and medication provided
== END 2023-09-20 16:26 | disposition home or self-care (01) ==
PROVIDERS: Visit Provider Urology
DX: N20.0 Calculus of kidney (principal)
CPT/HCPCS: 99024

== ENCOUNTER → 2023-09-20 15:28 | Outpatient (BNVA) | payer OTHER, SELFPAY | PROVIDERS: Visit Provider Urology | DX: N20.0 Calculus of kidney (principal) | CPT/HCPCS: 99212 ==

== ENCOUNTER 2023-12-20 15:18 | Outpatient (AMB) | payer OTHER, SELFPAY ==
--- NOTE | 2023-12-20 15:21 | A.OFFVIS_ITS ---
Intake Intake Visit Reasons: 3m/litholink Intake Note: Patient presents today for a follow-up on Nephrolithiasis [facility] 24 Hour Urine Collection: Meds- Vitamin B6 Allergies to Antibiotic- No Known Allergies Blood Thinner- None Packaging Associate Required: Yes Packaging Associate Language: Chicken Tender Name: Anastacia [id number] Information Interpreted: non-clinical & clinical Accompanied by: Self / Same As Patient Allergies No Known Allergies Allergy (Verified 12/20/23 15:22) HPI HPI Comments History of Present Illness Details Simi is a 43-year-old female who presents today to the office for a follow-up to review metabolic work up. 12/20/23--Discussed 24 hour urine results : Total volume 870 mL, Calcium 197 mg; Oxalate 16 mg, Sodium 120, Citrate 544 mg. Instructed on importance of in creasing fluid intake, otherwise other values are within normal limits 09/04/23--Stone analysis- CaOx--Calcium O xalate Dihydrate 20% Calcium Oxalate Monohydrate 80% Review of chart: 09/20/2023? She is followed today for bilateral nephrolithiasis. She was last seen by me on 09/04/2023. She was initially scheduled for left ESWL but the morning of the procedure, she stated she passed the left kidney stone and brought the stone. The stone was sent for analysis. She had a KUB that morning and was consented for a right ESWL. She states she is not sure if she passed any stone fragments. I have discussed at length diet modification to decrease risk of forming more kidney stones. I have discussed low oxalate diet and specific foods to avoid including certain green leafy vegetables, chocalate, nuts, tea, beets, rubarb; low sodium, decreased use of animal protein and the importance of hydration drinking up to 2-2.5 liters of fluids and use of adding lemon to water to increase citrate in the diet. A pamphlet is also provided today. Discussed further evaluation with metabolic w/u--Also discussed stone analysis- came back Calcium Oxalate. 09/20/2023: Evaluation today?UA?Leukocyt es: negative; blood: trace; protein: 1 +. 12/20/23: Plan: Increase fluids 48-64 ounces Cont vitamin B6 100 mg daily. Follow-up in 7 months. renal US prior [facility] Medical History Nephrolithiasis Surgical History Hx of tubal ligation Family History Father Cancer Mother HTN (hypertension) Sister Kidney calculi Social History Alcohol intake: never Patient Tobacco Use Status: Current everyday Tobacco user Review of Systems Const All systems reviewed & are unremarkable except as noted in HPI and below Reports no additional complaints Eyes Reports no additional complaints ENT Reports no additional complaints Card Denies dyspnea Resp Denies cough and Denies dyspnea GI Reports no additional complaints Reports no additional complaints Musc Reports no additional complaints Skin/Breast Denies rash and Denies unusual bruising Neuro Reports no additional complaints Psych Reports no additional complaints Endo Reports no additional complaints Eugene/Lymph Reports no additional complaints Aller/Immun Reports no additional complaints Results AMB Urinalysis, Automated UA Leukoctes 70 Walter/uL Last Edit by WESLEY Roque on 12/20/23 15:36 1+ Parviz West 12/20/23 15:36 UA Nitrite Negative Last Edit by WESLEY Roque on 12/20/23 15:36 UA Urobilinogen 0.2 mg/dL Last Edit by WESLEY Roque on 12/20/23 15:3 6 UA Protein 0 mg/dL Last Edit by WESLEY Roque on 12/20/23 15:36 UA pH 6.0 Last Edit by WELSEY Roque on 12/20/23 15:36 UA Blood 10 Toño/uL Last Edit by WESLEY Roque on 12/20/23 15:36 UA Specific [place] 1.030 Last Edit by Parviz West, RMA on 12/20/23 15: 36 UA Ketone Negative Last Edit by Parviz West RMA on 12/20/23 15:36 UA Bilirubin 0 mg/dL Last Edit by Parviz West, RMA on 12/20/23 15:36 UA Glucose 0 mg/dL Last Edit by Parviz West, A on 12/20/23 15:36 Results Reviewed Results Reviewed: Laboratory Last Values Urine pH (Auto) 6.0 12/20/23 15:22 Specific [place] (Auto) 1.030 12/20/23 15:22 Urine Protein (Auto) 0 mg/dL 12/20/23 15:22 Glucose (UA)(Auto) 0 mg/dL 12/20/23 15:22 Urine Ketones (Auto) Negative 12/20/23 15:22 Urine Blood (Auto) 10 Toño/uL 12/20/23 15:22 Urine Nitrite (Auto) Negative 12/20/23 15:22 Urine Bilirubin (Auto) 0 mg/dL 12/20/23 15:22 Urine Urobilinogen (Auto) 0.2 mg/dL 12/20/23 15:22 Leukocyte Esterase (Auto) 70 Walter/uL 12/20/23 15:22 09/04/23 STATUS: COMP REQ : [id number] RECD: 09/04/[address]: Delbert Benavides MD COMP: 09/10/238 ENTERED: 09/04/[address]: Physician,Unknown ORDERED: Kidney Stone QUERIES: Kidney Stone Source: left kidney Test Result Flag Reference Component 1 SEE NOTE Calcium Oxalate Dihydrate ([place]) 20% Calcium Oxalate Monohydrate ([place]) 80% See Note 1 Stone Weight 0.034 g Note 1 This test was developed and its analytical performance characteristics have been determined by [employer]. It has not been cleared or approved by the FDA. This assay has been validated pursuant to the CLIA regulations and is used for clinical purposes. THIS TEST WAS PERFORMED AT: [facility] [id number] [place] [address] GRAY JIMENEZ MD Stone Source LEFT KIDNEY STONE Assessment & Plan Assessment & Plan (1) Bilateral kidney stones: Code(s): N20.0 - Calculus of kidney Plan Increase fluids 48-64 ounces Cont vitamin B6 100 mg daily. Follow-up in 7 months. renal US prior Orders: Orders AMB Urinalysis Automated 12/20/23 Z13.9 - Encounter for screening, unspecified US renal BI 5 Months N20.0 - Calculus of kidney Medications: Refilled pyridoxine (vitamin B6) 100 mg PO DAILY 90 tabs 3RF Patient Instructions: The patient had an opportunity to ask questions regarding treatment plan. All questions were answered. Imaging, Laboratory studies and physical exam results were discussed and reviewed in detail. No major barriers to understanding were identified. The patient expressed understanding and agreement with the above treatment plan. The patient is aware they should contact our office by phone for worsening of their current condition or the appearance of new symptoms. Compliance is encouraged with any medications and followup testing that is ordered. It is a privilege to be allowed the opportunity to participate in the urologic care of your patient. If you have any questions or concerns regarding treatment for the above conditions please do not hesitate to contact me. The office telephone contact is [phone]. This note is constructed in part using voice recognition software. While every effort has been made to ensure accuracy utility arborist errors may have been included. Yours sincerely, Delbert Benavides MD Coding Level of Care Code Est Pt Level 3 (55798) Diagnoses Bilateral kidney stones N20.0
== END 2023-12-20 16:58 | disposition home or self-care (01) ==
PROVIDERS: Visit Provider Urology
DX: N20.0 Calculus of kidney (principal)
CPT/HCPCS: 99213

== ENCOUNTER → 2023-12-20 15:18 | Outpatient (BNVA) | payer OTHER, SELFPAY | PROVIDERS: Visit Provider Urology | DX: N20.0 Calculus of kidney (principal) | CPT/HCPCS: 81003; 99212 ==

== ENCOUNTER 2024-05-06 15:34 | Outpatient (REF) | payer OTHER, SELFPAY ==
--- NOTE | ~2024-05-06 | US_ITS ---
EXAMINATION: US RETROPERITONEAL LIMITED (RENAL ONLY) CLINICAL INFORMATION: Calculus of kidney. COMPARISON: X-ray KUB 09/04/2023. CT abdomen and pelvis 07/17/2023. TECHNIQUE: Real-time imaging of the kidneys. FINDINGS: RIGHT KIDNEY: 10.8 x 6.1 x 5.3 cm (SAG x AP x TRV). The kidney is normal in size, contour, and echogenicity. Renal cortical thickness is normal. There is a lower pole tiny 0.2 cm echogenic focus seen consistent with a nonobstructing calculus. On the prior CAT scan, a larger 4 mm calculus was present. No hydronephrosis. A benign upper pole 3.1 cm Bosniak class I renal cyst is noted which requires no additional imaging or follow up. No solid renal masses are seen. LEFT KIDNEY: 10.6 x 5.3 x 4.9 cm (SAG x AP x TRV). The kidney is normal in size, contour, and echogenicity. Renal cortical thickness is normal. There is a linear area with twinkle artifact seen in the mid kidney measuring 4 mm. This may represent the stone seen on the prior CT scan which measured 4 mm in the renal pelvic. No other calculi or focal parenchymal lesions. No hydronephrosis. US/US renal BI IMPRESSION: Bilateral nonobstructing renal calculi.
== END 2024-05-06 15:35 | disposition home or self-care (01) ==
LOC: HO.US 15:34
PROVIDERS: Visit Provider Urology
DX: N20.0 Calculus of kidney (principal)
CPT/HCPCS: 76775

== ENCOUNTER 2024-07-17 15:08 | Outpatient (AMB) | payer OTHER, SELFPAY ==
--- NOTE | 2024-07-17 14:02 | MHC.OFFVIS ---
Intake Visit Reasons: US f/u Allergies No Known Allergies Allergy (Verified 07/17/24 15:08) Medication List - Last Reconciled 07/17/24 by Delbert Benavides MD naproxen 500 mg PO BID omeprazole 20 mg PO DAILY pyridoxine (vitamin B6) 100 mg PO DAILY HPI Comments Details: 07/17/24--telehealth follow-up. I have reviewed renal ultrasound-05/06/24-- Bilateral small kidney stones. Patient is currently asymptomatic. Pt compliant with Vit B6, Will continue to monitor. FU one year Review of chart: 12/20/23--Simi is a 43-year-old female who presents today to the office for a follow-up to review metabolic work up. Discussed 24 hour urine results: Total volume 870 mL, Calcium 197 mg; Oxalate 16 mg, Sodium 120, Citrate 544 mg. Instructed on importance of increasing fluid intake, otherwise other values are within normal limits 09/04/23--Stone analysis- CaOx--Calcium Oxalate Dihydrate 20% Calcium Oxalate Monohydrate 80% 09/20/2023?She is followed today for bilateral nephrolithiasis. She was last seen by me on 09/04/2023. She was initially scheduled for left ESWL but the morning of the procedure, she stated she passed the left kidney stone and brought the stone. The stone was sent for analysis. She had a KUB that morning and was consented for a right ESWL. She states she is not sure if she passed any stone fragments. I have discussed at length diet modification to decrease risk of forming more kidney stones. I have discussed low oxalate diet and specific foods to avoid including certain green leafy vegetables, chocalate, nuts, tea, beets, rubarb; low sodium, decreased use of animal protein and the importance of hydration drinking up to 2-2.5 liters of fluids and use of adding lemon to water to increase citrate in the diet. A pamphlet is also provided today. Discussed further evaluation with metabolic w/u--Also discussed stone analysis- came back Calcium Oxalate. 09/20/2023: Evaluation today?UA?Leukocytes: negative; blood: trace; protein: 1 +. [facility] Medical History Nephrolithiasis Surgical History Hx of tubal ligation Family History Father Cancer Mother HTN (hypertension) Sister Kidney calculi Social History Alcohol intake: never Patient Tobacco Use Status: Current everyday Tobacco user Review of Systems Const All systems reviewed & are unremarkable except as noted in HPI and below Reports no additional complaints Eyes Reports no additional complaints ENT Reports no additional complaints Card Reports no additional complaints Resp Reports no additional complaints GI Reports no additional complaints Reports as per HPI Musc Reports no additional complaints Skin/Breast Reports system reviewed and no additional complaints, except as documented Neuro Reports no additional complaints Psych Reports no additional complaints Endo Reports no additional complaints Eugene/Lymph Reports no additional complaints Aller/Immun Reports no additional complaints Telehealth Telehealth Telehealth Platform: [facility] Location of provider rendering services: practice address Location of patient: address on file Patient Identification confirmed using: Name, : Yes Telehealth method: video Patient verbally consented to treatment: Yes Patient verbally consented to billing insurance company: Yes Patient informed of any privacy concerns related to visit: Yes Results Reviewed Results Reviewed: Date of Service: 05/06/24 US RETROPERITONEAL LIMITED (RENAL ONLY) CLINICAL INFORMATION: Calculus of kidney. COMPARISON: X-ray KUB 09/04/2023. CT abdomen and pelvis 07/17/2023. TECHNIQUE: Real-time imaging of the kidneys. FINDINGS: RIGHT KIDNEY: 10.8 x 6.1 x 5.3 cm (SAG x AP x TRV). The kidney is normal in size, contour, and echogenicity. Renal cortical thickness is normal. There is a lower pole tiny 0.2 cm echogenic focus seen consistent with a nonobstructing calculus. On the prior CAT scan, a larger 4 mm calculus was present. No hydronephrosis. A benign upper pole 3.1 cm Bosniak class I renal cyst is noted which requires no additional imaging or follow up. No solid renal masses are seen. LEFT KIDNEY: 10.6 x 5.3 x 4.9 cm (SAG x AP x TRV). The kidney is normal in size, contour, and echogenicity. Renal cortical thickness is normal. There is a linear area with twinkle artifact seen in the mid kidney measuring 4 mm. This may represent the stone seen on the prior CT scan which measured 4 mm in the renal pelvic. No other calculi or focal parenchymal lesions. No hydronephrosis. IMPRESSION: Bilateral nonobstructing renal calculi. Assessment & Plan Assessment & Plan (1) Bilateral kidney stones: Code(s): N20.0 - Calculus of kidney Category: Medical Plan Continue to monitor kidneys. Follow-up in 1 year renal ultrasound at that time. Encouraged increase fluid intake. Adding lemon to the water. Continue vitamin B6. Orders: Orders US renal BI 10 Months N20.0 - Calculus of kidney Patient Instructions: The patient had an opportunity to ask questions regarding treatment plan. The patient expressed understanding and agreement with the above treatment plan. The patient is aware they should contact our office by phone for worsening of their current condition or the appearance of new symptoms. Compliance is encouraged with any medications and followup testing that is ordered. It is a privilege to be allowed the opportunity to participate in the urologic care of your patient. If you have any questions or concerns regarding treatment for the above conditions please do not hesitate to contact me. The office telephone contact is [phone]. This note is constructed in part using voice recognition software. While every effort has been made to ensure accuracy tactical debriefer officer errors may have been included. Yours sincerely, Delbert Benavides MD Coding Level of Care Code Tele Est Pt Level 4 (10891) Diagnoses Bilateral kidney stones N20.0
== END 2024-07-17 15:29 | disposition home or self-care (01) ==
LOC: HO.HUSH 15:08
PROVIDERS: Visit Provider Urology
DX: N20.0 Calculus of kidney (principal)
CPT/HCPCS: 99214

== ENCOUNTER → 2024-07-17 15:08 | Outpatient (BNVA) | payer OTHER, SELFPAY | PROVIDERS: Visit Provider Urology ==

== ENCOUNTER 2025-05-12 11:38 | Outpatient (REF) | payer OTHER, SELFPAY ==
--- NOTE | ~2025-05-12 | US_ITS ---
CLINICAL HISTORY: N20.0 - Calculus of kidney US of kidneys Comparison: US/[place]/SR - US RENAL BI - 05/06/24 15:52 EDT Findings: Right kidney is normal in size, echogenicity and morphology, 11.0 cm in length. Simple cyst 3.1 x 3.4 x 3.2 cm in the upper pole, previously 3.1 cm. 2 mm calculus in the lower interpolar region is unchanged. No hydronephrosis. Left kidney is normal in size, echogenicity and morphology, 10.6 cm in length. Lower pole simple cysts 1.2 x 0.8 x 1.0 cm, not seen before. No calculus or hydronephrosis. Limited color Doppler demonstrates unremarkable bilateral blood flow. Impression: 1. Stable small nonobstructing right renal calculus. 2. Bilateral renal simple cysts, no imaging follow-up is needed. This document has been electronically signed by: Johanna Feng MD on 05/12/2025 15:53:11
== END 2025-05-12 11:39 | disposition home or self-care (01) ==
LOC: HO.US 11:38
PROVIDERS: Visit Provider Urology
DX: N20.0 Calculus of kidney (principal)
CPT/HCPCS: 76775

== ENCOUNTER → 2025-05-12 11:42 | Outpatient (BNV) | payer OTHER, SELFPAY | PROVIDERS: Visit Provider Radiology Diagnostic Radiology | DX: N28.1 Cyst of kidney, acquired (principal) | CPT/HCPCS: 76775 ==

== ENCOUNTER 2025-07-16 14:03 | Outpatient (AMB) | payer OTHER, SELFPAY ==
--- NOTE | 2025-07-16 14:10 | A.OFFVIS_ITS ---
Intake Visit Reasons: 1y/US Intake Note: Patient presents today for a 1yr follow-up Urology Meds- Vitamin B6 Allergies to Antibiotic- No Known Allergies Blood Thinner- None Gel Coat Sprayer Required: Yes Gel Coat Sprayer Language: Basket Bottom Machine Operator Name: Anastacia [id number] Information Interpreted: non-clinical & clinical Accompanied by: Self / Same As Patient Allergies No Known Allergies Allergy (Verified 07/16/25 14:16) HPI Comments Details: 07/16/25-- History of Present Illness The patient is a 45-year-old female presenting for an annual follow-up for kidney stones. She has a history of nephrolithiasis which have remained stable in size according to the recent ultrasound. The patient reports no new symptoms or complications related to her kidney stones. For preventative care, a 24-hour urine collection is planned for the next year to monitor and prevent further stone formation. Additionally, the patient is experiencing menorrhagia and is currently taking Provera to manage her bleeding. She is being followed by an OB in [place] and has discussed the possibility of using a Mirena IUD if the current treatment does not suffice. Results - Ultrasound: Stable small nonobstructing right renal calculus.-2 mm. Plan 1. Nephrolithiasis - Continue current management as stones are stable and not causing symptoms. - Plan for a 24-hour urine collection next year to monitor and prevent further stone formation. 07/17/24--telehealth follow-up. I have reviewed renal ultrasound-05/06/24-- Bilateral small kidney stones. Patient is currently asymptomatic. Pt compliant with Vit B6, Will continue to monitor. FU one year 12/20/23--Simi is a 43-year-old female who presents today to the office for a follow-up to review metabolic work up. Discussed 24 hour urine results: Total volume 870 mL, Calcium 197 mg; Oxalate 16 mg, Sodium 120, Citrate 544 mg. Instructed on importance of increasing fluid intake, otherwise other values are within normal limits 09/04/23--Stone analysis- CaOx--Calcium Oxalate Dihydrate 20% Calcium Oxalate Monohydrate 80% 09/20/2023?She is followed today for bilateral nephrolithiasis. She was last seen by me on 09/04/2023. She was initially scheduled for left ESWL but the morning of the procedure, she stated she passed the left kidney stone and brought the stone. The stone was sent for analysis. She had a KUB that morning and was consented for a right ESWL. She states she is not sure if she passed any stone fragments. I have discussed at length diet modification to decrease risk of forming more kidney stones. I have discussed low oxalate diet and specific foods to avoid including certain green leafy vegetables, chocalate, nuts, tea, beets, rubarb; low sodium, decreased use of animal protein and the importance of hydration drinking up to 2-2.5 liters of fluids and use of adding lemon to water to increase citrate in the diet. A pamphlet is also provided today. Discussed further evaluation with metabolic w/u--Also discussed stone analysis- came back Calcium Oxalate. 09/20/2023: Evaluation today?UA?Leukocytes: negative; blood: trace; protein: 1 +. PFSH Medical History Nephrolithiasis Surgical History Hx of tubal ligation Family History Father Cancer Mother HTN (hypertension) Sister Kidney calculi Social History Alcohol intake: never Patient Tobacco Use Status: Current everyday Tobacco user Review of Systems Const All systems reviewed & are unremarkable except as noted in HPI and below Reports no additional complaints Eyes Reports no additional complaints ENT Reports no additional complaints Card Reports no additional complaints Resp Reports no additional complaints GI Reports no additional complaints Reports as per HPI Musc Reports no additional complaints Skin/Breast Reports system reviewed and no additional complaints, except as documented Neuro Reports no additional complaints Psych Reports no additional complaints Endo Reports no additional complaints Eugene/Lymph Reports no additional complaints Aller/Immun Reports no additional complaints Results Reviewed Results Reviewed: Date of Service: 05/12/25 CLINICAL HISTORY: N20.0 - Calculus of kidney US of kidneys Comparison: US/[place]/SR - US RENAL BI - 05/06/24 15:52 EDT Findings: Right kidney is normal in size, echogenicity and morphology, 11.0 cm in length. Simple cyst 3.1 x 3.4 x 3.2 cm in the upper pole, previously 3.1 cm. 2 mm calculus in the lower interpolar region is unchanged. No hydronephrosis. Left kidney is normal in size, echogenicity and morphology, 10.6 cm in length. Lower pole simple cysts 1.2 x 0.8 x 1.0 cm, not seen before. No calculus or hydronephrosis. Limited color Doppler demonstrates unremarkable bilateral blood flow. Impression: 1. Stable small nonobstructing right renal calculus. 2. Bilateral renal simple cysts, no imaging follow-up is needed. Date of Service: 05/06/24 US RETROPERITONEAL LIMITED (RENAL ONLY) CLINICAL INFORMATION: Calculus of kidney. COMPARISON: X-ray KUB 09/04/2023. CT abdomen and pelvis 07/17/2023. TECHNIQUE: Real-time imaging of the kidneys. FINDINGS: RIGHT KIDNEY: 10.8 x 6.1 x 5.3 cm (SAG x AP x TRV). The kidney is normal in size, contour, and echogenicity. Renal cortical thickness is normal. There is a lower pole tiny 0.2 cm echogenic focus seen consistent with a nonobstructing calculus. On the prior CAT scan, a larger 4 mm calculus was present. No hydronephrosis. A benign upper pole 3.1 cm Bosniak class I renal cyst is noted which requires no additional imaging or follow up. No solid renal masses are seen. LEFT KIDNEY: 10.6 x 5.3 x 4.9 cm (SAG x AP x TRV). The kidney is normal in size, contour, and echogenicity. Renal cortical thickness is normal. There is a linear area with twinkle artifact seen in the mid kidney measuring 4 mm. This may represent the stone seen on the prior CT scan which measured 4 mm in the renal pelvic. No other calculi or focal parenchymal lesions. No hydronephrosis. IMPRESSION: Bilateral nonobstructing renal calculi. Assessment & Plan Assessment & Plan (1) Bilateral kidney stones: Code(s): N20.0 - Calculus of kidney Category: Medical Plan Plan 1. Nephrolithiasis - Continue current management as stones are stable and not causing symptoms. - Plan for a 24-hour urine collection next year to monitor and prevent further stone formation. Patient Instructions: The patient had an opportunity to ask questions regarding treatment plan. The patient expressed understanding and agreement with the above treatment plan. The patient is aware they should contact our office by phone for worsening of their current condition or the appearance of new symptoms. Compliance is encouraged with any medications and followup testing that is ordered. It is a privilege to be allowed the opportunity to participate in the urologic care of your patient. If you have any questions or concerns regarding treatment for the above conditions please do not hesitate to contact me. The office telephone contact is [phone]. This note is constructed in part using voice recognition software. While every effort has been made to ensure accuracy fire apparatus engineer errors may have been included. Yours sincerely, Delbert Benavides MD Scribe Plan - Not visible on output: Patient was informed and verbally consented to the use of an ambient scribe for clinic note documentation during this visit. Coding Level of Care Code Est Pt Level 3 (77097) Diagnoses Bilateral kidney stones N20.0
== END 2025-07-16 14:48 | disposition home or self-care (01) ==
LOC: HO.HUSH 14:03
PROVIDERS: Visit Provider Urology
DX: Z13.9 Encounter for screening, unspecified (principal); N20.0 Calculus of kidney
CPT/HCPCS: 99213

== ENCOUNTER → 2025-07-16 14:03 | Outpatient (BNVA) | payer OTHER, SELFPAY | PROVIDERS: Visit Provider Urology | DX: N20.0 Calculus of kidney (principal) | CPT/HCPCS: 81003; 99212 ==